=== PATIENT | male | born 1940 | race Caucasian/White ===

== ENCOUNTER → 2016-04-08 | Outpatient (CLI) | payer OTHER ==
[~2016-04-08] MED LIST: ADVAIR HFA120 INHAL1 IH; ALDACTONE25 MG PO; AMBIEN5 MG PO; ATROVENT 00.5 MG/2.5 IH; BICITRA SOLUTI473 ML PO; DECADRON4 MG PO; DEXAMETHASONE4 MG PO; FUROSEMIDE20 MG PO; HYDROCODON-ACE1 EAC7 PO; HYDROCODON-ACE1 EAC9 PO; KEPPRA500 MG PO; LEVETIRACETAM500 MG PO; LIPITOR40 MG PO; LITE COAT ASPI325 M1 PO; MULTI-DAY VITA1 EACH PO; NIFEDIPINE ER30 MG PO; NORVASC10 MG PO; PEPCID20 MG PO; PRESERVISION T1 EACH PO; PROBIOTIC1 EAC1 PO; SYMBICORT60 INHALAT IH; TENORMIN50 MG PO; ULORIC40 MG PO; VENTOLIN HFA18 GM IH; VITAMIN D31000 UNI2 PO; ZESTORETIC 20-1 EAC1 NG
== END | disposition home or self-care (01) ==
LOC: MRI 13:48 → EDSTATUS 14:30 → MRI 14:30 → RAD 14:30
DX: G93.9 Disorder of brain, unspecified (principal); J44.9 Chronic obstructive pulmonary disease, unspecified; Z88.0 Allergy status to penicillin
CPT/HCPCS: 77021

== ENCOUNTER 2016-04-09 09:00 | Inpatient (IN) | payer OTHER ==
[~2016-04-09] VITALS: Ht 167.6 cm; Wt 102.8 kg
[2016-04-09] VITALS (10 sets, daily range): BP systolic 140–173; BP diastolic 52–80
[~2016-04-09 09:00] MED LIST changes: -ADVAIR HFA120 INHAL1 IH; -AMBIEN5 MG PO; -BICITRA SOLUTI473 ML PO; -DEXAMETHASONE4 MG PO; -FUROSEMIDE20 MG PO; -HYDROCODON-ACE1 EAC7 PO; -HYDROCODON-ACE1 EAC9 PO; -LEVETIRACETAM500 MG PO; -NIFEDIPINE ER30 MG PO; -ULORIC40 MG PO; -VITAMIN D31000 UNI2 PO
[2016-04-09 17:52] LABS: METH RESISTANT S AUREUS PCR NEGATIVE (NEGATIVE)
[2016-04-09 17:53] LABS: PROBE CHECK PASS; SPECIMEN PROCESSING CONTROL PASS
[2016-04-10] VITALS (12 sets, daily range): BP systolic 134–173; BP diastolic 60–82
[2016-04-10 10:07] LABS: ANION GAP 11 MEQ/L (2-14); CHLORIDE 101 MEQ/L (99-109); SAMPLE HEMOLYSIS CHECK 0; SAMPLE ICTERIC CHECK 0; SAMPLE LIPEMIA CHECK 0; SODIUM 133 MEQ/L (136-147)
[2016-04-10 10:12] LABS: GFR ESTIMATE (CALCULATED) 49 mL/min/; GLUCOSE 164 mg/dL (70-99)
[2016-04-10 10:18] LABS: UREA NITROGEN (BUN) 52 mg/dL (9-23)
[2016-04-11 08:49] VITALS: BP 130/74
[2016-04-11 12:21] VITALS: BP 168/86
[2016-04-11 16:37] VITALS: BP 159/86
[2016-04-11] MEDS ORDERED: DEXAMETHASONE4 MG PO (17:11)
[2016-04-11] MEDS ORDERED: HYDROCODON-ACE1 EAC7 PO (17:11)
[2016-04-11] MEDS ORDERED: AMBIEN5 MG PO (17:19)
[2016-04-11] MEDS ORDERED: DECADRON4 MG PO (18:56)
[2016-04-11] MEDS ORDERED: ADVAIR HFA120 INHAL1 IH (18:57)
[2016-04-11] MEDS ORDERED: HYDROCODON-ACE1 EAC9 PO (18:59)
== END 2016-04-11 17:32 | DRG 26 ==
LOC: 4WEST 09:00 → 3EAST 09:00 → 2SOUTH 09:00 → SDC 10:04 → EDSTATUS 10:05 → 2SOUTH 10:06 → 4WEST 15:06 → 3EAST 04-10 16:22
PROVIDERS: Internal Medicine Critical Care Medicine; Neurological Surgery
DX: C70.9 Malignant neoplasm of meninges, unspecified (principal); G81.92 Hemiplegia, unspecified affecting left dominant side; R91.8 Other nonspecific abnormal finding of lung field
CPT/HCPCS: 70450; 77021; 80048; 87641; 88307; 88331; 88341 TC; 88342 TC; 94640; 94640 76; 94760; 94799; 95938; 99202; C1713; J0330; J1100; J1170; J2150; J2250; J2405; J2710; J3010; J3370; J3480; J8540

== ENCOUNTER 2016-04-11 10:54 | Inpatient (IN) | payer OTHER ==
[~2016-04-11] VITALS: Ht 167.6 cm; Wt 104.0 kg
[2016-04-11] MEDS ORDERED: DEXAMETHASONE4 MG PO (17:11)
[2016-04-11] MEDS ORDERED: HYDROCODON-ACE1 EAC7 PO (17:11)
[2016-04-11] MEDS ORDERED: AMBIEN5 MG PO (17:19)
[2016-04-11 17:51] VITALS: BP 136/93
[2016-04-11] MEDS ORDERED: DECADRON4 MG PO (18:56)
[2016-04-11] MEDS ORDERED: ADVAIR HFA120 INHAL1 IH (18:57)
[2016-04-11] MEDS ORDERED: HYDROCODON-ACE1 EAC9 PO (18:59)
[2016-04-11 19:48] LABS: ALKALINE PHOSPHATASE 77 IU/L (3-129); ANION GAP 11 MEQ/L (2-14); CHLORIDE 99 MEQ/L (99-109); GFR ESTIMATE (CALCULATED) 42 mL/min/; GLUCOSE 218 mg/dL (70-99); POTASSIUM 5.2 MEQ/L (3.7-5.4); SAMPLE HEMOLYSIS CHECK 0; SAMPLE ICTERIC CHECK 0; SAMPLE LIPEMIA CHECK 0; SODIUM 133 MEQ/L (136-147); TOTAL BILIRUBIN 0.3 MG/DL (0.0-1.0); UREA NITROGEN (BUN) 57 mg/dL (9-23)
[2016-04-12] VITALS: BP 147/65
[2016-04-12 05:50] LABS: HEMATOCRIT 34.5 % (38.0-50.0); MCH 31.1 PG (29.0-34.0); MCHC 34.2 G/DL (30.0-36.0); MCV 90.8 FL (86-99); MEAN PLAT.VOLUME 11.2 uM^3 (9.0-12.4); PLATELET COUNT 265 K/uL (156-360); RBC DIS.WIDTH-CV 12.8 % (11.8-14.6); RBC DIS.WIDTH-SD 42.2 % (39-53)
[2016-04-12 06:04] VITALS: BP 146/74
[2016-04-12 15:40] VITALS: BP 139/63
[2016-04-13 04:42] VITALS: BP 145/69
[2016-04-13 15:17] VITALS: BP 145/67
[2016-04-14 05:56] VITALS: BP 134/63
[2016-04-15 04:36] VITALS: BP 144/66
[2016-04-15 15:43] VITALS: BP 129/65
[2016-04-16 05:43] VITALS: BP 140/63
[2016-04-16 15:00] VITALS: BP 138/62
[2016-04-17 05:18] VITALS: BP 136/63
[2016-04-17 16:06] VITALS: BP 158/69
[2016-04-17] MEDS ORDERED: HYDROCODON-ACE1 EAC7 PO (16:45)
[2016-04-17] MEDS ORDERED: KEPPRA500 MG PO (16:45)
[2016-04-18 05:28] LABS: HEMATOCRIT 34.4 % (38.0-50.0); MCHC 34.6 G/DL (30.0-36.0); MCV 89.6 FL (86-99); MEAN PLAT.VOLUME 11.3 uM^3 (9.0-12.4); PLATELET COUNT 249 K/uL (156-360); RBC DIS.WIDTH-CV 12.7 % (11.8-14.6); RED BLOOD COUNT 3.84 M/uL (4.00-5.50); WHITE BLOOD COUNT 9.7 K/uL (4.1-10.2)
[2016-04-18 05:45] VITALS: BP 151/65
[2016-04-18 06:43] LABS: ALKALINE PHOSPHATASE 64 IU/L (3-129); ANION GAP 11 MEQ/L (2-14); CHLORIDE 100 MEQ/L (99-109); GFR ESTIMATE (CALCULATED) 45 mL/min/; GLUCOSE 224 mg/dL (70-99); POTASSIUM 5.4 MEQ/L (3.7-5.4); SAMPLE HEMOLYSIS CHECK 0; SAMPLE ICTERIC CHECK 0; SAMPLE LIPEMIA CHECK 0; SODIUM 127 MEQ/L (136-147); UREA NITROGEN (BUN) 85 mg/dL (9-23)
[2016-04-18 06:44] LABS: TOTAL BILIRUBIN 0.4 MG/DL (0.0-1.0)
[2016-04-18 15:05] VITALS: BP 130/60
[2016-04-18 17:20] LABS: ADD MIUA? NO; BILIRUBIN NEGATIVE; BLOOD NEGATIVE; COLOR YELLOW ((YELLOW)); GLUCOSE (STRIP) 250; KETONES NEGATIVE; LEUKOCYTES NEGATIVE; NITRITE NEGATIVE; PROTEIN (STRIP) 30; SPECIFIC GRAVITY 1.016 (1.000-1.030); UROBILINOGEN 0.2 MG/DL (0.2-1.0)
[2016-04-18 18:11] LABS: UR CREATININE CONCENTRATION 52.5 MG/DL
[2016-04-19 05:35] VITALS: BP 127/58
[2016-04-19 06:24] LABS: EOSINOPHIL (%) 0 % (0-5); HEMATOCRIT 36.6 % (38.0-50.0); IMMATURE GRANULOCYTE COUNT 0.1 K/uL; LYMPHOCYTE COUNT 0.6 K/uL (1.0-2.8); MCH 31.4 PG (29.0-34.0); MCHC 34.7 G/DL (30.0-36.0); MCV 90.4 FL (86-99); MEAN PLAT.VOLUME 11.7 uM^3 (9.0-12.4); MONOCYTE (%) 4.3 % (3-12); MONOCYTE COUNT 0.3 K/uL (0-0.8); NEUTROPHIL (%) 87.1 % (45-76); NEUTROPHIL COUNT 6.8 K/uL (1.8-6.4); PLATELET COUNT 253 K/uL (156-360); RBC DIS.WIDTH-CV 12.7 % (11.8-14.6); RED BLOOD COUNT 4.05 M/uL (4.00-5.50); WHITE BLOOD COUNT 7.8 K/uL (4.1-10.2)
[2016-04-19 06:51] LABS: ALKALINE PHOSPHATASE 63 IU/L (3-129); ANION GAP 10 MEQ/L (2-14); CHLORIDE 102 MEQ/L (99-109); GFR ESTIMATE (CALCULATED) 45 mL/min/; GLUCOSE 171 mg/dL (70-99); MAGNESIUM 2.5 mg/dl (1.3-2.7); POTASSIUM 5.6 MEQ/L (3.7-5.4); SAMPLE HEMOLYSIS CHECK 0; SAMPLE ICTERIC CHECK 0; SAMPLE LIPEMIA CHECK 0; SODIUM 130 MEQ/L (136-147); UREA NITROGEN (BUN) 82 mg/dL (9-23)
[2016-04-19 06:54] LABS: TOTAL BILIRUBIN 0.5 MG/DL (0.0-1.0)
[2016-04-19 10:33] LABS: HPCA INDEX 0.07
[2016-04-19 17:08] VITALS: BP 172/80
[2016-04-19 17:45] VITALS: BP 166/74
[2016-04-20 05:51] VITALS: BP 136/63
[2016-04-20 10:03] LABS: ANION GAP 16 MEQ/L (2-14); CHLORIDE 98 MEQ/L (99-109); GFR ESTIMATE (CALCULATED) 42 mL/min/; GLUCOSE 235 mg/dL (70-99); POTASSIUM 5.5 MEQ/L (3.7-5.4); SAMPLE HEMOLYSIS CHECK 0; SAMPLE ICTERIC CHECK 0; SAMPLE LIPEMIA CHECK 0; SODIUM 129 MEQ/L (136-147); UREA NITROGEN (BUN) 87 mg/dL (9-23)
[2016-04-20 11:34] LABS: BASE EXCESS -8.1 mEq/L (-3 to +3); BICARBONATE 14.9 mEq/L (22-26); CARBOXY HGB 1.7 % (0-5); METHEMOGLOBIN 1.5 % (0-1.5); PCO2 24 mm Hg (35-45); PO2 108 mm Hg (80-100)
[2016-04-20 11:35] LABS: COMMENTS - BLOOD GASES A+C+; SITE LR
[2016-04-20 11:36] LABS: DEVICE RA
[2016-04-20 11:37] LABS: TOTAL RESP RATE 20 resp/min
[2016-04-20 15:30] VITALS: BP 173/82
[2016-04-21 04:27] LABS: CHLORIDE 102 mEq/L (99-109); POTASSIUM 5.7 mEq/L (3.7-5.4); SODIUM 130 mEq/L (136-147)
[2016-04-21 04:29] LABS: GLUCOSE 270 mg/dL (70-99)
[2016-04-21 04:30] LABS: ANION GAP 13 MEQ/L (2-14)
[2016-04-21 04:33] LABS: GFR ESTIMATE (CALCULATED) 42 mL/min/
[2016-04-21 04:34] LABS: UREA NITROGEN (BUN) 85 mg/dL (9-23)
[2016-04-21 04:35] LABS: URIC ACID 8.6 mg/dL (3.1-9.2)
[2016-04-21 05:46] VITALS: BP 151/65
[2016-04-21 16:30] VITALS: BP 154/72
[2016-04-21 16:32] LABS: POINT-OF-CARE METER ID UU13113720
[2016-04-21 19:09] LABS: ADD MIUA? YES; BILIRUBIN NEGATIVE; BLOOD SMALL; COLOR YELLOW ((YELLOW)); GLUCOSE (STRIP) NEGATIVE; KETONES NEGATIVE; LEUKOCYTES TRACE; NITRITE NEGATIVE; PROTEIN (STRIP) 100; SPECIFIC GRAVITY 1.016 (1.000-1.030); UROBILINOGEN 0.2 MG/DL (0.2-1.0)
[2016-04-21 19:16] LABS: BACTERIA NONE SEEN; CASTS NONE SEEN /LPF; CRYSTALS NONE SEEN; EPITHELIAL CELLS RARE; MUCUS NONE SEEN; PATHOLOGICAL CAST NONE SEEN; RED BLOOD CELLS 0-5 /HPF (0-5); SMALL ROUND CELL NONE SEEN; WHITE BLOOD CELLS 0-5 /HPF (0-5); YEAST-LIKE CELL NONE SEEN
[2016-04-21 21:50] LABS: POINT-OF-CARE METER ID UU13113720
[2016-04-22 05:47] VITALS: BP 138/65
[2016-04-22 06:28] LABS: ANION GAP 14 MEQ/L (2-14); CHLORIDE 99 MEQ/L (99-109); GFR ESTIMATE (CALCULATED) 49 mL/min/; GLUCOSE 156 mg/dL (70-99); POTASSIUM 5.5 MEQ/L (3.7-5.4); SAMPLE HEMOLYSIS CHECK 0; SAMPLE ICTERIC CHECK 0; SAMPLE LIPEMIA CHECK 0; SODIUM 133 MEQ/L (136-147); UREA NITROGEN (BUN) 68 mg/dL (9-23)
[2016-04-22 11:26] LABS: POINT-OF-CARE METER ID UU13113720; POINT-OF-CARE USER ID AHSSSJB31
[2016-04-22 13:54] LABS: SALICYLATE < 3.0 MG/DL (15-30)
[2016-04-22 15:47] VITALS: BP 158/62
[2016-04-22 16:42] LABS: POINT-OF-CARE METER ID UU13113720
[2016-04-22 20:57] LABS: POINT-OF-CARE METER ID UU13113720
[2016-04-23 04:34] LABS: EOSINOPHIL (%) 0.5 % (0-5); EOSINOPHIL COUNT 0.1 K/uL (0-0.3); HEMATOCRIT 35.7 % (38.0-50.0); IMMATURE GRANULOCYTE (%) 0.3 % (0.0-0.7); IMMATURE GRANULOCYTE COUNT 0.3 K/uL; LYMPHOCYTE COUNT 0.9 K/uL (1.0-2.8); MCH 31.2 PG (29.0-34.0); MCHC 35.3 G/DL (30.0-36.0); MCV 88.4 FL (86-99); MEAN PLAT.VOLUME 10.1 uM^3 (9.0-12.4); MONOCYTE (%) 5.8 % (3-12); MONOCYTE COUNT 0.6 K/uL (0-0.8); NEUTROPHIL COUNT 8.8 K/uL (1.8-6.4); PLATELET COUNT 186 K/uL (156-360); RBC DIS.WIDTH-CV 12.4 % (11.8-14.6); RBC DIS.WIDTH-SD 39.2 % (39-53); RED BLOOD COUNT 4.04 M/uL (4.00-5.50); WHITE BLOOD COUNT 10.4 K/uL (4.1-10.2)
[2016-04-23 04:44] LABS: CHLORIDE 102 mEq/L (99-109); POTASSIUM 4.6 mEq/L (3.7-5.4); SODIUM 134 mEq/L (136-147)
[2016-04-23 04:45] LABS: CHLORIDE 102 mEq/L (99-109); POTASSIUM 4.5 mEq/L (3.7-5.4); SODIUM 134 mEq/L (136-147)
[2016-04-23 04:46] LABS: GLUCOSE 144 mg/dL (70-99)
[2016-04-23 04:47] LABS: ANION GAP 11 MEQ/L (2-14); GLUCOSE 145 mg/dL (70-99)
[2016-04-23 04:48] LABS: ANION GAP 11 MEQ/L (2-14)
[2016-04-23 04:49] LABS: GFR ESTIMATE (CALCULATED) 45 mL/min/; TOTAL BILIRUBIN 0.5 mg/dL (0.0-1.0)
[2016-04-23 04:50] LABS: UREA NITROGEN (BUN) 66 mg/dL (9-23)
[2016-04-23 04:51] LABS: ALKALINE PHOSPHATASE 76 IU/L (3-129); GFR ESTIMATE (CALCULATED) 45 mL/min/
[2016-04-23 04:52] LABS: UREA NITROGEN (BUN) 67 mg/dL (9-23)
[2016-04-23 04:54] LABS: CREATINE KINASE 70 IU/L (1-294); TOTAL CK 70 IU/L (1-294)
[2016-04-23 05:00] LABS: CK-MB 3.4 ng/mL (0.0-4.9)
[2016-04-23 05:38] VITALS: BP 150/77
[2016-04-23 06:43] LABS: POINT-OF-CARE METER ID UU14174215
[2016-04-23 11:49] LABS: POINT-OF-CARE METER ID UU14174215
[2016-04-23] MEDS ORDERED: VITAMIN D31000 UNI2 PO (12:51)
[2016-04-23] MEDS ORDERED: FUROSEMIDE20 MG PO (12:51)
[2016-04-23] MEDS ORDERED: LEVETIRACETAM500 MG PO (12:51)
[2016-04-23] MEDS ORDERED: NIFEDIPINE ER30 MG PO (12:51)
[2016-04-23] MEDS ORDERED: BICITRA SOLUTI473 ML PO (12:51)
[2016-04-23] MEDS ORDERED: ULORIC40 MG PO (12:51)
[2016-04-23 15:33] VITALS: BP 167/79
== END 2016-04-23 15:04 | DRG 945 ==
LOC: 3WEST 10:54
PROVIDERS: Internal Medicine Nephrology; Physical Medicine & Rehabilitation Pain Medicine
PROC: F07M7ZZ Manual Therapy Techniques Treatment of Musculoskeletal System - Whole Body (ICD-10-PCS; principal; 2016-04-11)
DX: R53.1 Weakness (principal); G81.94 Hemiplegia, unspecified affecting left nondominant side; E87.1 Hypo-osmolality and hyponatremia; C70.0 Malignant neoplasm of cerebral meninges; E87.2 Acidosis; G89.18 Other acute postprocedural pain; J44.9 Chronic obstructive pulmonary disease, unspecified; E87.5 Hyperkalemia; I12.9 Hypertensive chronic kidney disease with stage 1 through stage 4 chronic kidney disease, or unspecified chronic kidney disease; N18.2 Chronic kidney disease, stage 2 (mild); R91.8 Other nonspecific abnormal finding of lung field; E78.5 Hyperlipidemia, unspecified; E66.9 Obesity, unspecified; H35.30 Unspecified macular degeneration; D32.0 Benign neoplasm of cerebral meninges; Z68.37 Body mass index [BMI] 37.0-37.9, adult; Z87.891 Personal history of nicotine dependence
CPT/HCPCS: 36600; 76770; 80053; 80069; 81003; 82010 90; 82436; 82550; 82553; 82570; 82803; 82948; 83605; 83735; 83935; 84133; 84156; 84300; 84439; 84443; 84550; 85025; 85027; 86803; 87040; 92523 GN; 94640; 94640 76; 94760; 97110 GO; 97112 GO; 97530 GP; 99202; G0480; J1815; J8540